=== PATIENT | male | born 1945 | race Caucasian/White ===

== ENCOUNTER 2021-02-07 07:05 | Day surgery (SDC) | payer OTHER, SELFPAY ==
[2021-02-07] VITALS (9 sets, daily range): BP systolic 137–151; BP diastolic 80–99; PULSE 64–85; RESP 16–18; TEMP 36–36.4; O2SAT 90–100; BMI 33.3
--- NOTE | 2021-02-07 07:37 | HP.PCM_ITS ---
HPI - General HPI Narrative CARLEY GREENFIELD, is a 75 M who presents due to history of polyps for colonoscopy. Patient had a colonoscopy in 2016 where he had 2 polyps one was a tubular adenoma and one had some hyperplastic focal areas. Patient states he has bowel movements daily denies any blood denies any family history of colon cancer. Patient denies any chronic abdominal pain/nausea/vomiting/reflux. [facility] Patient is on aspirin which he stopped. [facility] Medical History (Updated 02/07/21 @ 07:[address] Doreen Simpson MD) Back pain Depression Diabetes Dietary restriction Former smoker High cholesterol History of colon polyps HTN (hypertension) Hx of sebaceous cyst Hyperlipidemia Injury of back Injury of head and neck Syncope Wears dentures Wears glasses Wears hearing aid Home Medications aspirin 81 mg tablet,delayed release 81 mg PO DAILY 01/03/21 [History Last Taken Unknown] fluoxetine 20 mg capsule 20 mg PO DAILY 01/03/21 [History Last Taken Unknown] lisinopril 40 mg tablet 40 mg PO DAILY 01/03/21 [History Last Taken Unknown] lovastatin 20 mg tablet 20 mg PO DAILY 01/03/21 [History Last Taken Unknown] metformin 500 mg tablet,extended release 24 hr 500 mg PO DAILY 01/03/21 [History Last Taken Unknown] cetirizine [Zyrtec] 10 mg PO DAILY 02/02/21 [History Last Taken Unknown] Allergy/AdvReac Type Severity Reaction Status Date / Time No Known Allergies Allergy Verified 02/07/21 07:31 Family History (Updated 01/03/21 @ 13:57 by Leila Garcia) Mother Diabetes Hypertension Father CVA (cerebral vascular accident) Surgical History (Updated 01/03/21 @ 13:56 by Leila Garcia) History of colonoscopy (~11/2015) Social History Smoking Status: Former smoker Past Medical/Surgical History Planned Operation Planned Operative Procedure/s: CSCOPE Previous Hospitalizations/Surgeries HX Hospitalizations: No Any Problems With Anesthesia: No You/Your Family Experience Fever (Hyperthermia) With Anes: No Cholinesterase deficiency: No Cardiovascular Hx Hypertension: Yes (CONTROLLED WITH MED) Respiratory Hx Sleep Apnea: No Hx Respiratory Tract Infection/Cold (presently): No Do You Snore Loudly (louder than talking or can be heard): Yes Do You Often Feel Tired/ Fatigued/ Sleepy Dring Daytime?: Yes Has Anyone Observed You Stop Breathing During Sleep?: No Result (for STOP score): Positive Smoking Status: Former smoker Neurological Does patient have nerve stimulator: No Reproduction : No Miscellaneous Recent Exposure to Contagious Disease: No Allergies No Known Allergies Allergy (Verified 02/07/21 07:31) Discharge Is Pt Admitted From a Skilled Nursing, or a Nursing Home: No After D/C, Where Do you Plan to Go: Return Home Vital Signs Vital Signs Vital Signs: 02/07/21 07:32 Respiratory Pattern Normal Physical Exam Const alert, oriented x3 and no apparent distress HEENT normocephalic and head/scalp atraumatic Resp normal respiratory effort Cardio regular rate GI soft to palpation and non-tender; Negative for non-distended Palpation: Negative for guarding Extremity no clubbing, cyanosis or edema Neuro CN's II-XII intact bilaterally Psych mental status grossly normal Assessment & Plan Assessment/Plan (1) History of colon polyps: Procedure Criteria Type of Procedure Procedure Type: Elective Elective Risks - COVID COVID Risk Discussion: The surgeon/proceduralist and patient have discussed in detail the risk of exposure to and/or potential harm posed by the COVID-19 virus with having a surgery/procedure at this time versus the risk of delaying the surgery/procedure. It is not possible to know either the risk of delaying the surgery or procedure or chance of getting an infection with perfect accuracy, but a joint decision was made between the patient and the surgeon/proceduralist to proceed at this time with the scheduled surgery/procedure as indicated on the consent form. Surgery Risks - Colonoscopy Risks Include but are not Limited To: Risks include but are not limited to: Bleeding, perforation requiring further surgery, inability to complete colonoscopy requiring barium enema. Patient no further questions
[2021-02-07] MEDS: Lactated Ringers 1,000 ML 100 ML IV (07:51)
--- NOTE | 2021-02-07 10:02 | OP.COLON_ITS ---
Patient Name: Clifford Durand Procedure Date: 02/07/2021 9:08 AM Date of : 1945 Age: 75 Procedure: Colonoscopy Indications: Surveillance: Personal history of colonic polyps (unknown histology) on last colonoscopy 5 years ago Providers: Doreen Simpson MD Medicines: Monitored Anesthesia Care Patient Profile: This is a 75 year old male. Last Colonoscopy: 2016. Complications: No immediate complications. Procedure: Pre-Anesthesia Assessment: - Prior to the procedure, a History and Physical was performed, and patient medications and allergies were reviewed. The patient's tolerance of previous anesthesia was also reviewed. The risks and benefits of the procedure and the sedation options and risks were discussed with the patient. All questions were answered, and informed consent was obtained. Prior Anticoagulants: The patient has taken no previous anticoagulant or antiplatelet agents. ASA Grade Assessment: Per anesthesia. After reviewing the risks and benefits, the patient was deemed in satisfactory condition to undergo the procedure. After I obtained informed consent, the scope was passed under direct vision. Throughout the procedure, the patient's blood pressure, pulse, and oxygen saturations were monitored continuously. The colonoscope was introduced through the anus and advanced to the cecum, identified by the ileocecal valve. The colonoscopy was performed without difficulty. The patient tolerated the procedure well. The quality of the bowel preparation was good. Scope In: 9:18:20 AM Scope Withdrawal Time 0 hours 18 minutes 16 seconds Scope Out: 9:57:27 AM Total Procedure Duration Time 0 hours 39 minutes 7 seconds Findings: The perianal and digital rectal examinations were normal. The entire examined colon appeared normal on direct and retroflexion views. Impression: - The entire examined colon is normal on direct and retroflexion views. - No specimens collected. Recommendation: - Discharge patient to home. - Resume previous diet. - Continue present medications. - Await pathology results. - Repeat colonoscopy depending on overall health at that time. Procedure Code(s): --- Professional --- G0105, PT, Colorectal cancer screening; colonoscopy on individual at high risk Diagnosis Code(s): --- Professional --- Z86.010, Personal history of colonic polyps CPT copyright 2017 [employer]. All rights reserved. The codes documented in this report are preliminary and upon proof sorter review may be revised to meet current compliance requirements. MD Doreen Pastor MD 02/07/2021 10:02:07 AM This report has been signed electronically. Number of Addenda: 0 Note Initiated On: 02/07/2021 9:08 AM
--- NOTE | 2021-02-07 10:03 | OP.CCLET_ITS ---
02/07/2021 [facility] Re : Colonoscopy procedure for [facility] This procedure was performed on Sunday, February 07, 2021. My impressions and recommendations are as follows: Impressions : - The entire examined colon is normal on direct and retroflexion views. - No specimens collected. Recommendations : - Discharge patient to home. - Resume previous diet. - Continue present medications. - Await pathology results. - Repeat colonoscopy depending on overall health at that time. My findings are described in the full procedure note, which is enclosed. If I can be of further assistance, please feel free to contact me at Doctor phone number(s): , Work: . Sincerely, MD Doreen Pastor MD 02/07/2021 10:02:07 AM This report has been signed electronically.
[2021-02-07 10:11] LABS: Bedside Glucose 125 mg/dL (70-110)
== END 2021-02-07 11:13 | disposition home or self-care (01) ==
LOC: EN 07:08 → AC 07:13
PROVIDERS: Visit Provider Surgery
PROC: 0DJD8ZZ Inspection of Lower Intestinal Tract, Via Natural or Artificial Opening Endoscopic (ICD-10-PCS; CPT 45378; principal; 2021-02-07 08:40)
DX: Z12.11 Encounter for screening for malignant neoplasm of colon (principal); I10 Essential (primary) hypertension; E11.9 Type 2 diabetes mellitus without complications; E78.00 Pure hypercholesterolemia, unspecified; Z79.82 Long term (current) use of aspirin; Z79.84 Long term (current) use of oral hypoglycemic drugs; Z79.899 Other long term (current) drug therapy; Z86.010 Personal history of colon polyps; Z87.891 Personal history of nicotine dependence
CPT/HCPCS: 45378; 82962; J7120; J2405